=== PATIENT | female | born 1940 | race Caucasian/White ===

== ENCOUNTER 2016-10-26 18:34 | Observation (INO) | payer MEDICARE, BC ==
[~2016-10-26] VITALS: Ht 154.9 cm; Wt 67.0 kg
[2016-10-26] MEDS ORDERED: ASPIRIN 81 MG CHEW TAB ONE (18:39)
[2016-10-26] MEDS ORDERED: CYCLOBENZAPRINE 10 MG TAB ONE (20:56)
[2016-10-26] MEDS ORDERED: TEMAZEPAM 7.5 MG CAP PO PRN (21:50)
[2016-10-26] MEDS ORDERED: LORAZEPAM 0.5 MG TAB PO PRN (21:50)
[2016-10-26] MEDS ORDERED: DOCUSATE SOD 100 MG CAP PO PRN (21:50)
[2016-10-26] MEDS ORDERED: NITROGLYCERIN 50 MG/250 ML IV PRN (21:50)
[2016-10-26] MEDS ORDERED: SALINE FLUSH 10 ML FLUSH PRN (21:50)
[2016-10-26] MEDS ORDERED: SODIUM CHLORIDE 0.9% 1,000 ML IV SCH (21:50)
[2016-10-26] MEDS ORDERED: TRAMADOL 50 MG TAB PO PRN (21:50)
[2016-10-26] MEDS ORDERED: NITROGLYCERIN SL 0.4 MG TAB SL PRN (21:50)
[2016-10-26] MEDS ORDERED: MORPHINE 2 MG/ML SYR IV PRN (21:50)
[2016-10-26] MEDS ORDERED: ONDANSETRON 4 MG VIAL IV PRN (21:50)
[2016-10-26] MEDS ORDERED: SODIUM CHLORIDE 0.9% FLUSH BAG 500 ML IV PRN (21:50)
[2016-10-26] MEDS ORDERED: ACETAMINOPHEN 325 MG TAB PO PRN (21:55)
[2016-10-26 23:22] VITALS: BP_SYST 156; BP_SYST 160; RESP 18; TEMP 98.9
[2016-10-26 23:23] VITALS: Ht 154.9 cm; Wt 67.0 kg
[2016-10-27 03:08] VITALS: BP_SYST 120; RESP 20; TEMP 98.3
[2016-10-27 03:46] VITALS: RESP 18
[2016-10-27 07:39] VITALS: BP_SYST 113; RESP 18; TEMP 98.1
[2016-10-27] MEDS ORDERED: SALINE FLUSH 10 ML FLUSH SCH (08:00)
[2016-10-27] MEDS ORDERED: ASPIRIN EC 81 MG TAB PO SCH (08:00)
[2016-10-27 11:37] VITALS: BP_SYST 112; RESP 18; TEMP 98.2
[2016-10-27 12:06] VITALS: BP_SYST 112; RESP 18; TEMP 98.2
== END 2016-10-27 10:59 | disposition home or self-care (01) ==
LOC: ENRESERVTM → ENRESERVDT → ER 18:34 → ENPENDDIS 21:26 → EMR 21:26 → PCU 23:08
PROVIDERS: ADMIT Specialist; ATTEND Specialist
CPT/HCPCS: 36415 ×2; 71010 ×2; 80053 ×2; 80061 ×2; 82550 ×2; 83735 ×2; 84484 ×2; 85025 ×2; 85610 ×2; 85730 ×2; 93005 ×2; 94799; 99284; G0378; J2405